=== PATIENT | female | born 1965 | race Caucasian/White ===

== ENCOUNTER 2019-07-01 10:42 | Emergency (ER) | payer MEDICAID ==
[~2019-07-01] VITALS: Ht 157.5 cm; Wt 52.2 kg
[~2019-07-01 10:42] MED LIST: ALBUTEROL2.5 MG/3 M INH; ALBUTEROL2.5 MG/31 INH; AMOXICILLIN500 M1 PO; APAP650 PO; AUGMENTIN 875875 MG PO; CLONAZEPAM 1 MG1 M1 PO; DUONEB 2.5-0.5 M3 ML INH; INHALER; LEVAQUIN 500 M500 M2 PO; MEDROLDOSEPACK PO; NAPROSYN500 MG PO; NEBULIZER MISCELL; NICOTINE TRANSD21 M1 TRANSDERM; PAXIL10 MG PO; PERCOCET 5-3251 EACH; PERCOCET 5-3251 EACH PO; PREDNISONE 20 M20 M1 PO; PREDNISONE 20 M20 MG PO; PROAIR HFA8.5 GM INH; REMERON15 MG PO; ROBAXIN500 MG PO; SPIRIVA18 MCG INH; TRAZODONE HCL100 MG PO; TRAZODONE HCL50 MG PO; VISTARIL 25 MG25 M1 PO; ZPAK PO; [UNRECOGNIZED DRUG - OTHER]
[2019-07-01] MEDS ORDERED: MELOXICAM7.5 MG PO (11:04)
[2019-07-01] MEDS ORDERED: DULERA 100 MCG/13 GM (11:04)
[2019-07-01] MEDS ORDERED: FLEXERIL PO (11:05)
[2019-07-01 11:50] LABS: INFLUENZA A ANTIGEN Negative (Negative); INFLUENZA B ANTIGEN Negative (Negative)
[2019-07-01] MEDS ORDERED: MEDROLDOSEPACK PO (12:02)
[2019-07-01] MEDS ORDERED: ZPAK PO (12:02)
[2019-07-01] MEDS ORDERED: TESSALON PERLE100 MG PO (12:02)
[2019-07-01 12:37] VITALS: BP 131/76
== END 2019-07-01 12:39 | disposition home or self-care (01) ==
LOC: M.ERS 10:42
PROVIDERS: Nurse Practitioner Family
DX: J44.1 Chronic obstructive pulmonary disease with (acute) exacerbation (principal); F41.9 Anxiety disorder, unspecified; F32.9 Major depressive disorder, single episode, unspecified; F17.210 Nicotine dependence, cigarettes, uncomplicated

== ENCOUNTER 2019-07-11 11:14 | Inpatient (IN) | payer MEDICAID ==
[~2019-07-11] VITALS: Ht 157.5 cm; Wt 46.3 kg
[~2019-07-11 11:14] MED LIST changes: +DULERA 100 MCG/13 GM INH; +FLEXERIL PO; +MELOXICAM7.5 MG PO; +TESSALON PERLE100 MG PO
[2019-07-11 11:17] VITALS: BP 157/73
[2019-07-11] MEDS ORDERED: AMBIEN 10 MG TA10 MG PO (11:34)
[2019-07-11] MEDS ORDERED: DULERA 200 MCG/13 GM INH (11:35)
[2019-07-11] MEDS ORDERED: SYMBICORT160 MCG/4. INH (11:35)
[2019-07-11] MEDS ORDERED: PROAIR HFA8.5 GM INH (11:38)
[2019-07-11 11:50] LABS: ABSOLUTE BASOPHILS 0.1 thou/uL (0.0-0.2); ABSOLUTE LYMPHOCYTES 2.6 thou/uL (0.8-5.3); ABSOLUTE MONOCYTES 0.9 thou/uL (0.0-1.2); ABSOLUTE NEUTROPHILS 10.2 thou/uL (1.6-8.1); BASOPHILS 0.4 %; EOSINOPHILS 0.3 %; HEMATOCRIT 36.3 % (37.0-47.0); HEMOGLOBIN 12.5 gm/dL (12.0-15.0); LYMPHOCYTES 18.8 %; MCH 28.3 pg (26.0-34.0); MCHC 34.5 g/dL (28.0-37.0); MCV 82.1 fL (80.0-100.0); MONOCYTES 6.7 %; MPV 6.5 fl. (7.2-11.1); NUCLEATED RBCS 0 /100WBC; PLATELET COUNT* 453 thou/uL (150-400); POLYS 73.8 %; RBC 4.43 mil/uL (4.20-5.00); WBC 13.8 thou/uL (4.0-11.0)
[2019-07-11 11:57] LABS: CALCIUM 9.4 mg/dL (8.5-10.1); CREATININE 0.8 mg/dL (0.6-1.3); POTASSIUM 3.2 mmol/L (3.5-5.1)
[2019-07-11 12:07] LABS: TOTAL BILIRUBIN 0.5 mg/dL (<0.1-1.0); TOTAL PROTEIN 7.4 g/dL (6.4-8.2)
[2019-07-11 14:02] LABS: INFLUENZA A ANTIGEN Negative (Negative); INFLUENZA B ANTIGEN Negative (Negative)
[2019-07-11 14:28] VITALS: BP 111/57
[2019-07-11 15:09] VITALS: BP 93/56
--- NOTE | 2019-07-11 15:16 | EKG ---
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: : 1965 Requested By: Petra Martin Order Number: [id number] MD: Omar Fields Measurements Intervals [place] Rate: 83 P: 79 DC: 129 QRS: 64 QRSD: 89 T: 34 QT: 340 QTc: 400 Interpretive Statements Sinus rhythm Consider right atrial enlargement Compared to ECG 02/28/2016 08:55:56 T-wave abnormality no longer present Electronically Signed On 07-11-2019 15:16:28 [employer]IZER TESTER by Omar Fields [email or web address] <ELECTRONICALLY SIGNED> By: Omar Fields MD, [facility] 07/11/19 1516 1139 1139 Omar Fields MD, [facility] /EPI
[2019-07-11 16:00] VITALS: BP 96/58
[2019-07-11 21:25] VITALS: BP 101/65
[2019-07-12 08:00] VITALS: BP 125/65
[2019-07-12 11:08] LABS: HEMATOCRIT 34.6 % (37.0-47.0); HEMOGLOBIN 11.4 gm/dL (12.0-15.0); MCH 27.7 pg (26.0-34.0); MCHC 32.9 g/dL (28.0-37.0); MCV 84.4 fL (80.0-100.0); MPV 6.9 fl. (7.2-11.1); NUCLEATED RBCS 0 /100WBC; PLATELET COUNT* 461 thou/uL (150-400); RDW-CV 14.9 % (10.5-14.5); WBC 15.9 thou/uL (4.0-11.0)
[2019-07-12 11:22] LABS: ALBUMIN 2.7 g/dL (3.4-5.0); CALCIUM 9.9 mg/dL (8.5-10.1); CREATININE 0.9 mg/dL (0.6-1.3); TOTAL BILIRUBIN 0.2 mg/dL (<0.1-1.0); TOTAL PROTEIN 6.9 g/dL (6.4-8.2)
[2019-07-12 11:24] LABS: POTASSIUM 4.2 mmol/L (3.5-5.1)
[2019-07-12 11:41] LABS: ABSOLUTE LYMPHOCYTES 2.1 thou/uL (0.8-5.3); ABSOLUTE MONOCYTES 0.6 thou/uL (0.0-1.2); ABSOLUTE NEUTROPHILS 13.2 thou/uL (1.6-8.1)
[2019-07-12 11:42] LABS: ANISOCYTOSIS Occasional; PLATELET ESTIMATE INCREASED
[2019-07-12 13:37] VITALS: BP 117/70
[2019-07-12 13:38] VITALS: BP 117/70
[2019-07-12 17:46] VITALS: BP 128/70
[2019-07-12 20:00] VITALS: BP 131/69
[2019-07-13] MEDS ORDERED: AZITHROMYCIN500 MG PO (11:24)
[2019-07-13] MEDS ORDERED: PREDNISONE 10 M10 M1 PO (11:34)
[2019-07-13 11:35] VITALS: BP 145/72
[2019-07-13] MEDS ORDERED: KEFLEX500 M1 PO (11:35)
[2019-07-13 11:41] VITALS: BP 145/72
[2019-07-13 11:44] LABS: HEMATOCRIT 32.6 % (37.0-47.0); HEMOGLOBIN 10.8 gm/dL (12.0-15.0); MCH 28.4 pg (26.0-34.0); MCHC 33.1 g/dL (28.0-37.0); MCV 85.8 fL (80.0-100.0); MPV 7.8 fl. (7.2-11.1); NUCLEATED RBCS 0 /100WBC; PLATELET COUNT* 433 thou/uL (150-400); RDW-CV 15.4 % (10.5-14.5); WBC 14.6 thou/uL (4.0-11.0)
[2019-07-13 11:56] LABS: ALBUMIN 2.5 g/dL (3.4-5.0); CALCIUM 9.1 mg/dL (8.5-10.1); CREATININE 0.9 mg/dL (0.6-1.3); TOTAL BILIRUBIN 0.2 mg/dL (<0.1-1.0); TOTAL PROTEIN 6.1 g/dL (6.4-8.2)
[2019-07-13 12:21] LABS: ABSOLUTE LYMPHOCYTES 1.6 thou/uL (0.8-5.3); ABSOLUTE MONOCYTES 0.1 thou/uL (0.0-1.2); ABSOLUTE NEUTROPHILS 12.8 thou/uL (1.6-8.1); METAMYELOCYTES 2 %; MYELOCYTES 1 %; PLATELET ESTIMATE ADEQUATE
[2019-07-13 12:43] VITALS: BP 145/72
== END 2019-07-13 12:40 | disposition home or self-care (01) | DRG 190 ==
LOC: M.ERS 11:14 → M.TBA-ER 13:37 → M.ORTHSURG 14:30
PROVIDERS: Nurse Practitioner Family; ADMIT Internal Medicine
DX: J44.0 Chronic obstructive pulmonary disease with (acute) lower respiratory infection (principal); J18.9 Pneumonia, unspecified organism; J44.1 Chronic obstructive pulmonary disease with (acute) exacerbation; F41.9 Anxiety disorder, unspecified; F32.9 Major depressive disorder, single episode, unspecified; F17.210 Nicotine dependence, cigarettes, uncomplicated; D72.829 Elevated white blood cell count, unspecified; J40 Bronchitis, not specified as acute or chronic; Z91.81 History of falling; Z82.49 Family history of ischemic heart disease and other diseases of the circulatory system; Z79.899 Other long term (current) drug therapy

== ENCOUNTER 2019-07-14 10:58 | Emergency (ER) | payer MEDICAID ==
[~2019-07-14] VITALS: Ht 157.5 cm; Wt 59.0 kg
[~2019-07-14 10:58] MED LIST changes: +AMBIEN 10 MG TA10 MG PO; +AZITHROMYCIN500 MG PO; +DULERA 200 MCG/13 GM INH; +KEFLEX500 M1 PO; +PREDNISONE 10 M10 M1 PO; +SYMBICORT160 MCG/4. INH
[2019-07-14 11:55] LABS: PCO2 42.7 mmHg (35.0-45.0); pH 7.416 (7.340-7.450)
[2019-07-14 11:56] LABS: HEMOGLOBIN 11.5 gm/dL (12.0-15.0); MCH 28.1 pg (26.0-34.0); MCHC 33.9 g/dL (28.0-37.0); MCV 82.7 fL (80.0-100.0); MPV 6.1 fl. (7.2-11.1); NUCLEATED RBCS 0 /100WBC; PLATELET COUNT* 503 thou/uL (150-400); RBC 4.11 mil/uL (4.20-5.00)
[2019-07-14 11:59] LABS: PO2 38.5 mmHg (75.0-100.0)
[2019-07-14 11:59] LABS: CALCIUM 9.4 mg/dL (8.5-10.1)
[2019-07-14 12:03] LABS: APTT 23.2 Seconds (25.0-31.3); PROTIME 10.2 Seconds (9.20-11.50)
[2019-07-14 12:10] LABS: TOTAL BILIRUBIN 0.2 mg/dL (<0.1-1.0); TOTAL PROTEIN 6.6 g/dL (6.4-8.2)
[2019-07-14 12:12] LABS: POTASSIUM 2.9 mmol/L (3.5-5.1)
[2019-07-14 12:14] LABS: ABSOLUTE LYMPHOCYTES 3.1 thou/uL (0.8-5.3); ABSOLUTE MONOCYTES 0.5 thou/uL (0.0-1.2); ABSOLUTE NEUTROPHILS 9.4 thou/uL (1.6-8.1); ANISOCYTOSIS 1+; MYELOCYTES 1 %; PLATELET ESTIMATE INCREASED; POIKILOCYTOSIS 1+; POLYCHROMASIA Occasional
[2019-07-14 13:40] VITALS: BP 172/77
--- NOTE | 2019-07-14 15:25 | EKG ---
[place] [address] ELECTROCARDIOGRAM REPORT Name: MONY PATEL Room: [facility]#: [id number] Admission: 07/14/19 Attend Phys: Discharge: Date of : 61 Report #: [id number] THIS REPORT FOR: //name// [facility] ED Test Date: 2019-07-14 Test Time: 11:30:04 Pat Name: MONY PATEL Department: Room: Gender: F Transfer Man: : 1965 Requested By: Ratna Castro Order Number: [id number] Vasile MD: Reynaldo Jay Measurements Intervals [place] Rate: 86 P: 88 VT: 140 QRS: 56 QRSD: 85 T: 42 QT: 325 QTc: 389 Interpretive Statements Sinus rhythm Baseline wander in lead(s) II,III,aVF,V1 Compared to ECG 07/11/2019 11:39:08 No significant changes Electronically Signed On 07-14-2019 15:24:54 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 07/14/19 1524 1130 1130 Reynaldo Jay MD, [facility]ACC /EPI
[2019-07-14 15:55] VITALS: BP 160/86
== END 2019-07-14 15:55 | disposition home or self-care (01) ==
LOC: M.ERS 10:58
PROVIDERS: Personal Emergency Response Attendant
DX: J44.9 Chronic obstructive pulmonary disease, unspecified (principal); R09.02 Hypoxemia; R60.0 Localized edema; F41.9 Anxiety disorder, unspecified; F32.9 Major depressive disorder, single episode, unspecified; F17.210 Nicotine dependence, cigarettes, uncomplicated

== ENCOUNTER 2019-07-16 12:56 | Emergency (ER) | payer MEDICAID ==
[~2019-07-16] VITALS: Ht 157.5 cm; Wt 59.0 kg
[2019-07-16 15:22] VITALS: BP 169/109
== END 2019-07-16 15:23 | disposition left against medical advice (07) ==
LOC: M.ERS 12:56
DX: R60.0 Localized edema (principal); M79.601 Pain in right arm; R06.02 Shortness of breath; F41.9 Anxiety disorder, unspecified; F32.9 Major depressive disorder, single episode, unspecified; J44.9 Chronic obstructive pulmonary disease, unspecified; F17.210 Nicotine dependence, cigarettes, uncomplicated

== ENCOUNTER 2019-12-16 09:12 | Emergency (ER) | payer MEDICAID ==
[~2019-12-16] VITALS: Ht 157.5 cm; Wt 53.8 kg
[2019-12-16 09:55] LABS: ABSOLUTE EOSINOPHILS 0.2 thou/uL (0.0-0.7); ABSOLUTE LYMPHOCYTES 3.1 thou/uL (0.8-5.3); ABSOLUTE MONOCYTES 0.7 thou/uL (0.0-1.2); ABSOLUTE NEUTROPHILS 5.2 thou/uL (1.6-8.1); BASOPHILS 0.4 %; EOSINOPHILS 2.4 %; HEMATOCRIT 39.1 % (37.0-47.0); HEMOGLOBIN 13.2 gm/dL (12.0-15.0); LYMPHOCYTES 33.6 %; MCH 28.5 pg (26.0-34.0); MCHC 33.9 g/dL (28.0-37.0); MCV 84.2 fL (80.0-100.0); MONOCYTES 7.3 %; MPV 6.8 fl. (7.2-11.1); NUCLEATED RBCS 0 /100WBC; PLATELET COUNT* 458 thou/uL (150-400); POLYS 56.3 %; RBC 4.64 mil/uL (4.20-5.00); RDW-CV 15.7 % (10.5-14.5); WBC 9.2 thou/uL (4.0-11.0)
[2019-12-16 09:59] LABS: CALCIUM 8.9 mg/dL (8.5-10.1); CREATININE 0.9 mg/dL (0.6-1.3); POTASSIUM 4.2 mmol/L (3.5-5.1)
[2019-12-16 10:03] LABS: TOTAL BILIRUBIN 0.8 mg/dL (<0.1-1.0); TOTAL PROTEIN 7.7 g/dL (6.4-8.2)
[2019-12-16] MEDS ORDERED: KLONOPIN1 MG PO (11:08)
[2019-12-16] MEDS ORDERED: MEDROLDOSEPACK PO (13:01)
[2019-12-16 13:04] VITALS: BP 149/69
--- NOTE | 2019-12-16 16:27 | EKG ---
[place] [address] ELECTROCARDIOGRAM REPORT Name: MONY PATEL Room: [facility]#: [id number] Admission: 12/16/19 Attend Phys: Discharge: 12/16/19 Date of : 61 Date of Service: 12/16/19917 Report #: [id number] THIS REPORT FOR: //name// [facility] ED Test Date: 2019-12-16 Test Time: 09:18:04 Pat Name: MONY PATEL Department: Room: Gender: Association Executive: [facility] [place] : 1965 Requested By: Ratna Castro Order Number: [id number] Vasile MD: Omar Fields Measurements Intervals [place] Rate: 73 P: 75 [place]: 139 QRS: 66 QRSD: 94 T: 50 QT: 363 QTc: 400 Interpretive Statements Sinus rhythm Compared to ECG 07/14/2019 11:30:04 No significant changes Electronically Signed On 12-16-2019 16:25:19 CDT by Omar Fields [email or web address] <ELECTRONICALLY SIGNED> By: Omar Fields MD, [facility] 12/16/19 1625 7 7 Omar Fields MD, [facility] /EPI
== END 2019-12-16 13:04 | disposition home or self-care (01) ==
LOC: M.ERS 09:12
PROVIDERS: Personal Emergency Response Attendant
DX: F41.9 Anxiety disorder, unspecified (principal); M50.121 Cervical disc disorder at C4-C5 level with radiculopathy; M50.122 Cervical disc disorder at C5-C6 level with radiculopathy; J44.9 Chronic obstructive pulmonary disease, unspecified; F17.210 Nicotine dependence, cigarettes, uncomplicated